=== PATIENT | male | born 1960 | race African-American/Black ===

== ENCOUNTER 2017-12-08 19:32 | Emergency (ER) | payer OTHER ==
[~2017-12-08] VITALS: Ht 182.9 cm; Wt 98.2 kg
[2017-12-08 20:26] LABS: HEMATOCRIT 36.1 % (38.0-50.0); MCH 27.6 PG (29.0-34.0); MCV 76.6 FL (86-99); PLATELET COUNT 384 K/uL (156-360); RBC DIS.WIDTH-CV 13.9 % (11.8-14.6); RBC DIS.WIDTH-SD 38.6 % (39-53); RED BLOOD COUNT 4.71 M/uL (4.00-5.50); WHITE BLOOD COUNT 6.8 K/uL (4.1-10.2)
[2017-12-08 20:38] LABS: INTER. NORMALIZED RATIO 1.1
[2017-12-08 20:45] LABS: CHLORIDE 102 MEQ/L (99-109); POTASSIUM 3.8 MEQ/L (3.7-5.4); SODIUM 138 MEQ/L (136-147)
[2017-12-08 20:51] LABS: CREATININE 1.3 MG/DL (0.6-1.3); GFR ESTIMATE (CALCULATED) > 59 mL/min/ (58.99-99999); GLUCOSE 118 mg/dL (70-99); UREA NITROGEN (BUN) 12 mg/dL (9-23)
[2017-12-08] MEDS ORDERED: KEFLEX500 MG PO (22:22)
[2017-12-08 22:42] VITALS: BP 132/68
== END 2017-12-08 22:42 ==
LOC: EME 19:32 → EDBD 19:32 → EME 22:42
PROVIDERS: Emergency Medicine
DX: L03.116 Cellulitis of left lower limb (principal); R22.42 Localized swelling, mass and lump, left lower limb; I10 Essential (primary) hypertension
CPT/HCPCS: 80048; 85027; 85610; 93971; 99281; 99284